=== PATIENT | female | born 1940 | race Caucasian/White ===

== ENCOUNTER 2017-05-27 01:37 | Emergency (ER) | payer OTHER ==
[~2017-05-27] VITALS: Ht 157.5 cm; Wt 74.8 kg
[~2017-05-27 01:37] MED LIST: ASPIRIN325 MG PO; ASPIRIN81 M2 PO; CALCIUM + D3 E1 EACH PO; CALCIUM 600 +1 EAC3 PO; CALCIUM 600 MG1 EACH PO; CENTRUM SILVER1 EAC3 PO; COUMADIN2.5 MG PO; FERROUS SULFAT325 MG PO; FOSAMAX70 MG PO; MOBIC7.5 MG PO; MULTIPLE VITAM1 EACH PO; MULTIVITAMIN1 EAC2 PO; NIACIN500 M1 PO; NIASPAN,SLO-N1000 MG PO; PERCOCET 5/31 TABLET PO; PROTONIX40 MG PO; ROXICET,PERCOCET5 ML PO; TYLENOL EXTRA500 MG PO; VALSARTAN PO; VALSARTAN-HCTZ1 EAC1 PO; VALSARTAN160 MG PO; VISTARIL25 MG PO; VITAMIN D-32000 UNI1 PO; VITAMIN D10000 UNIT PO
[2017-05-27 04:29] VITALS: BP 183/75
== END 2017-05-27 04:31 | disposition home or self-care (01) ==
LOC: EME 01:37
DX: I49.3 Ventricular premature depolarization (principal); I10 Essential (primary) hypertension; R73.03 Prediabetes
CPT/HCPCS: 93005; 99281; 99284